=== PATIENT | female | born 1995 | race Caucasian/White ===

== ENCOUNTER 2022-10-17 03:38 | Emergency (ER) | payer OTHER, SELFPAY ==
[2022-10-17 03:43] VITALS: BP 135/88; PULSE 113; RESP 16; O2SAT 100
--- NOTE | 2022-10-17 04:08 | ED.DENTAL ---
HPI - Dental/Oral General Chief complaint: Dental/Oral Stated complaint: dental pain Time Seen by Provider: 10/17/22 03:40 Source: patient and RN notes reviewed Mode of arrival: ambulatory Limitations: no limitations History of Present Illness HPI Narrative: This is a 27 year old female who presents for evaluation of left facial swelling. She reports 1.5 months ago she was having left facial pain and dental pain. She was placed on antibiotics and she has appointment with dentist for root canal. Tonight she woke up feeling inflammation and swelling to left cheek. She also reports pain. She denies nausea, vomiting, fever or chills. She has not been on antibiotics for 1 month. She is unsure the name of the antibiotic that she took. She took ibuprofen 3 hours ago for her pain. Rates pain 03/28 Related Data Allergies Allergy/AdvReac Type Severity Reaction Status Date / Time No Known Allergies Allergy Verified 10/17/22 03:47 Review of Systems Review of Systems: All systems reviewed & are unremarkable except as noted in HPI and below PMFSH Family History Family History (Updated 04/23/18 @ 14:55 by DOCTOR UNKNOWN) Grandparent Hypertension Social History Social History Smoking status: Former smoker Smoking end date: 10/19/15 Alcohol intake: current Exam Const: General: no acute distress and alert Nutritional Appearance: well nourished Orientation/consciousness: patient oriented x3 HENMT: Head: normal to inspection Ears: external ears normal Mouth: Yes lip normal and Yes moist mucous membranes Teeth and gingiva: abnormal tooth and associated gingiva upper left second molar Throat: posterior oropharynx normal Other: mild left cheek swelling, no gingival abscess appreciated Eyes: EOM: EOMs intact bilaterally Chest: Chest palpation & inspection: normal inspection of the chest Resp: Effort & Inspection: normal respiratory effort Skin: General skin exam: normal color Rashes: no rashes Wounds: no wounds Neuro: General: patient oriented x3, moves all extremities and CN's II-XI intact bilaterally Psych: Mental Status: mental status grossly normal Affect: normal affect Attitude: cooperative Course Reevaluation(s) Reevaluation #1: Patient presents with facial swelling likely from dental infection. I do not appreciate any abscess. Date: 10/17/22 Time: 04:14 Vital Signs Vital signs: Vital Signs Pulse Rate 113 H 10/17/22 03:43 Respiratory Rate 16 10/17/22 03:43 Blood Pressure 135/88 10/17/22 03:43 Pulse Oximetry 100 10/17/22 03:43 Oxygen Delivery Room Air 10/17/22 03:43 Pulse Rate 113 H 10/17/22 03:43 Respiratory Rate 16 10/17/22 03:43 Blood Pressure 135/88 10/17/22 03:43 Pulse Oximetry 100 10/17/22 03:43 Oxygen Delivery Room Air 10/17/22 03:43 Discharge Plan Discharge Clinical Impression: Dental infection, Left facial swelling Patient Disposition: Home, Self-Care Condition: Stable Instructions: Antibiotic Form, Dental Abscess (ED) Additional Instructions: Continue to apply warm or cold compression. Take ibuprofen for your pain. Take antibiotics to completion and follow up with your dentist. Prescriptions: New amoxicillin-pot clavulanate 875-125 mg tablet 1 tablet PO Q12H Qty: 20 0RF Follow-up/Referrals: PHYSICIAN NOT ON STAFF,NONSTAFF [Primary Care Provider] - Stand Alone Forms: Work/School Release IP
[2022-10-17] MEDS: AMOXICILLIN/CLAVULANATE K 875-125 MG TAB 1 TABLET PO (04:15)
[2022-10-17] MEDS: traMADol HCL (*CRX) 50 MG TABLET PO (04:15)
== END 2022-10-17 04:39 | disposition home or self-care (01) ==
PROVIDERS: Emergency Provider General Practice
DX: K04.7 Periapical abscess without sinus (principal); Z87.891 Personal history of nicotine dependence
CPT/HCPCS: 99283; A9270